=== PATIENT | female | born 1980 | race Caucasian/White ===

== ENCOUNTER 2018-02-03 15:52 | Emergency (ER) | payer MEDICAID ==
[~2018-02-03] VITALS: Ht 160 cm; Wt 67.6 kg
[2018-02-03 15:56] VITALS: Ht 160 cm; Wt 67.6 kg
[2018-02-03 17:03] VITALS: BP 134/64
== END 2018-02-03 17:03 | disposition home or self-care (01) ==
LOC: ED 15:52
DX: H72.92 Unspecified perforation of tympanic membrane, left ear (principal); Z90.710 Acquired absence of both cervix and uterus